=== PATIENT | female | born 1950 | race Caucasian/White ===

== ENCOUNTER 2017-01-01 23:10 | Emergency (ER) | payer OTHER ==
[2017-01-02 02:03] LABS: BASOPHIL % 1.2 % (0-2); CALCIUM 8.7 mg/dL (8.5-10.1); CARBON DIOXIDE 27.7 mmol/L (21-32); CHLORIDE SERUM 97 mmol/L (98-107); CREATININE SERUM 0.9 mg/dL (0.6-1.0); GFR1 > 60 mL/min; GLUCOSE SERUM 99 mg/dL (74-106); PLATELET COUNT 246 x10^3mcL (130-400); POTASSIUM SERUM 3.4 mmol/L (3.5-5.1); SODIUM SERUM 136 mmol/L (136-145)
[2017-01-02 02:05] LABS: RED CELL DISTRIBUTION WIDTH 15.9 % (11.5-14.5)
[2017-01-02 02:10] LABS: ALBUMIN 3.5 g/dL (3.4-5.0); ALKALINE PHOSPHATASE 99 U/L (46-116); ALT/SGPT 19 U/L (14-59); AST/SGOT 27 U/L (15-37); BILIRUBIN TOTAL 0.4 mg/dL (0.20-1.00); CHOLESTEROL 150 mg/dL (<200); HDL CHOLESTEROL 43 mg/dL (40-60); TOTAL PROTEIN, SERUM 7.5 g/dL (6.4-8.2)
[2017-01-02 03:55] VITALS: BP 121/79
== END 2017-01-02 03:55 | disposition home or self-care (01) ==
LOC: ED 23:10
PROVIDERS: Emergency Medicine
DX: J44.9 Chronic obstructive pulmonary disease, unspecified (principal); I10 Essential (primary) hypertension; Z79.899 Other long term (current) drug therapy; Z79.891 Long term (current) use of opiate analgesic
CPT/HCPCS: 83880; J2270; J2405; J2930; J7613; Q0092

== ENCOUNTER 2017-01-10 21:28 | Emergency (ER) | payer OTHER, BC ==
[2017-01-10 22:50] LABS: BASOPHIL % 0.2 % (0-2); PLATELET COUNT 279 x10^3mcL (130-400)
[2017-01-10 22:54] LABS: RED CELL DISTRIBUTION WIDTH 16.3 % (11.5-14.5)
[2017-01-10 23:00] LABS: CALCIUM 8.7 mg/dL (8.5-10.1); CARBON DIOXIDE 30.4 mmol/L (21-32); CHLORIDE SERUM 101 mmol/L (98-107); CREATININE SERUM 0.8 mg/dL (0.6-1.0); GFR1 > 60 mL/min; GLUCOSE SERUM 96 mg/dL (74-106); POTASSIUM SERUM 3.3 mmol/L (3.5-5.1); SODIUM SERUM 138 mmol/L (136-145)
[2017-01-10 23:03] LABS: ALKALINE PHOSPHATASE 93 U/L (46-116); ALT/SGPT 30 U/L (14-59); AMYLASE 37 U/L (25-115); AST/SGOT 31 U/L (15-37); BILIRUBIN TOTAL 0.42 mg/dL (0.20-1.00); LIPASE 143 IU/L (73-393); TOTAL PROTEIN, SERUM 6.9 g/dL (6.4-8.2)
[2017-01-10 23:04] LABS: ALBUMIN 3.2 g/dL (3.4-5.0)
[2017-01-11 02:42] VITALS: BP 99/56
== END 2017-01-11 02:42 | disposition home or self-care (01) ==
LOC: ED 21:28
PROVIDERS: Emergency Medicine
DX: R11.10 Vomiting, unspecified (principal); R19.7 Diarrhea, unspecified; I10 Essential (primary) hypertension; Z88.6 Allergy status to analgesic agent; Z88.8 Allergy status to other drugs, medicaments and biological substances
CPT/HCPCS: J2270; J2405; J7030